=== PATIENT | male | born 2000 | race Caucasian/White ===

== ENCOUNTER 2022-04-04 09:57 | Emergency (ER) | payer BC, SELFPAY ==
[2022-04-04 09:58] VITALS: BP 142/86; PULSE 84; RESP 16; TEMP 36.7; O2SAT 97; BMI 25.2
--- NOTE | 2022-04-04 13:47 | EX.ED.DYSGE1 ---
HPI History of Present Illness Chief Complaint: Abscess Informant: patient Narrative Narrative: Bump on his scrotum noted 4 days ago started draining last couple days. No fevers. Tender to palpation. No history of similar. No past medical history. No allergies. Prior similar symptoms: No PFSH PFSH Medical History no medical history Home Medications sulfamethoxazole 800 mg-trimethoprim 160 mg tablet (Bactrim DS) 1 tab PO Q12H #20 tabs 04/04/22 [Rx Last Taken Unknown] Allergy/AdvReac Type Severity Reaction Status Date / Time No Known Allergies Allergy Verified 04/04/22 09:58 Surgical History no surgical history Social History Smoking Status: Never smoker ROS ROS ED Constitutional Constitutional ED: Denies chills, fever(s) or sweats Eyes Eyes: Denies change in vision ENT ENT ED: Denies dysphagia or sore throat Cardiovascular Cardiovascular: Denies chest pain, leg edema, palpitations or racing heartbeat Respiratory/Chest Respiratory/Chest: Denies cough, dyspnea or dyspnea on exertion Gastrointestinal Gastrointestinal: Denies abdominal pain, diarrhea, nausea or vomiting Genitourinary Genitourinary ED: Denies dysuria, hematuria or urinary frequency Musculoskeletal Musculoskeletal: Denies back pain, extremity pain or neck pain Integumentary Reports abscess; Denies rash or wounds Neurologic Neurologic: Denies headache(s), paresthesias or weakness EXAM Physical Exam Const Vital Signs: 04/04/22 09:58 Temperature 98.1 F Temperature Source Temporal Pulse Rate 84 Respiratory Rate 16 Blood Pressure 142/86 H Blood Pressure Mean 104 Pulse Ox 97 Oxygen Delivery Method Room Air Positive well nourished and well developed General Appearance ED: well developed and NAD HEENT Reports moist mucous membranes normocephalic and atraumatic Eyes PERRL, EOMs intact bilaterally and conjunctivae normal General Eye ED: Yes normal appearance of both eyes Neck no lymphadenopathy and supple General: Negative for tenderness Chest Wall Chest: Negative for tenderness Resp normal respiratory effort and normal air movement Effort and Inspection: symmetric chest movement; Negative for respiratory distress Cardio regular rate, regular rhythm and no murmurs Peripheral Pulses: pulses 2+ throughout GI normal to inspection, nondistended, normoactive bowel sounds and non-tender Palpation: Negative for guarding or rebound tenderness present Narrative: examination scrotum right at the base right side small induration with opening with drainage with manipulation increasing exudative drainage. There is no surrounding erythema. Mild tender palpation. Back/Spine no CVA tenderness and no thoracic nor lumbar tenderness Extremity normal to inspection General Extremety ED: Negative for edema or tenderness General Extremity: Negative for edema Neuro oriented x3 and no sensory deficits noted Sensorium / Orientation: awake and alert Skin no rashes or lesions noted and no wounds MDM MDM MDM Narrative Medical decision making narrative: Vital stable nontoxic. Current spontaneous drainage of abscess right at the base of the scrotum right side. There is no expression of drainage was performed. Discussed sitz bath with the patient. Bactrim started. Urology follow-up with strict return precautions. All questions were answered. Discharge Plan Triage Chief Complaint: Abscess ED Provider: Pdero Moise Dx/Rx/DC Orders Clinical Impression: Abscess of scrotum, Scrotal pain Instructions: ED Abscess Antibiotic Treatment Only Prescriptions: New sulfamethoxazole-trimethoprim [Bactrim DS] 800-160 mg tablet 1 tab PO Q12H Qty: 20 0RF Primary Care Provider: NOT,DEFINED Referrals: Ishmael Jay MD [Med Staff - Active Staff] - 1 Week NOT,DEFINED [Primary Care Provider] - Activity Restrictions/Additional Instructions: Your abscess is spontaneously draining. Sitz bath in warm water tub as discussed. Take antibiotic as prescribed. Follow-up with urology. Return if any worsening symptoms. Disposition Disposition: Home, Self Care
== END 2022-04-04 13:55 | disposition home or self-care (01) ==
LOC: ED 13:54
PROVIDERS: Emergency Provider Emergency Medicine; Visit Provider Emergency Medicine
DX: N49.2 Inflammatory disorders of scrotum (principal)
CPT/HCPCS: 99282